=== PATIENT | male | born 1945 | race Caucasian/White ===

== ENCOUNTER 2020-08-23 18:25 | Outpatient (CLI) | payer MEDICARE, BC, SELFPAY ==
[2020-08-23 19:43] LABS: Albumin Level 3.2 g/dL (3.5-5.2); Anion Gap 10.6 (5-19); Blood Urea Nitrogen 16 mg/dL (8-23); Calcium 9.7 mg/dL (8.5-10.5); Carbon Dioxide 30 mmol/L (22-29); Chloride 103 mmol/L (98-107); Glucose 119 mg/dL (65-115); Osmolality Calculated 292 mOsm/kg (285-295); Potassium 3.6 mmol/L (3.5-5.1); Sodium 140 mmol/L (136-145)
[2020-08-23 19:45] LABS: Estmated Average Glucose 117; Hemoglobin A1C 5.7 % (4.0-6.0)
== END 2020-08-23 18:26 | disposition home or self-care (01) ==
PROVIDERS: PCP Family Medicine; Visit Provider Student in an Organized Health Care Education/Training Program
DX: E11.22 Type 2 diabetes mellitus with diabetic chronic kidney disease (principal); I13.0 Hypertensive heart and chronic kidney disease with heart failure and stage 1 through stage 4 chronic kidney disease, or unspecified chronic kidney disease; I50.32 Chronic diastolic (congestive) heart failure; N18.4 Chronic kidney disease, stage 4 (severe)
CPT/HCPCS: 80048; 82040; 83036

== ENCOUNTER 2021-04-25 15:36 | Outpatient (CLI) | payer MEDICARE, SELFPAY ==
[2021-04-25 16:18] LABS: Potassium 3.8 mmol/L (3.5-5.1)
== END 2021-04-25 15:37 | disposition home or self-care (01) ==
PROVIDERS: PCP Family Medicine; Visit Provider Student in an Organized Health Care Education/Training Program
DX: Z01.89 Encounter for other specified special examinations (principal)
CPT/HCPCS: 84132